=== PATIENT | male | born 1935 | race Caucasian/White ===

== ENCOUNTER 2023-03-14 07:33 | Outpatient (REF) | payer MEDICARE, SELFPAY ==
[2023-03-14 11:43] LABS: MANUAL DIFF FLAG NO
[2023-03-14 11:50] LABS: Basophils Absolute Auto 0.1 X10*3/uL (0.0-0.2); Basophils Percent Auto 0.8 % (0-2); Eosinophils Absolute Auto 0.2 X10*3/uL (0.0-0.4); Eosinophils Percent Auto 2.6 % (0-4); Hematocrit 42.5 % (42.0-52.0); Hemoglobin 13.5 g/dl (14.0-18.0); Imm Gran Abs Auto 0.02 X10*3/uL (0.00-0.03); Imm Gran Pct Auto 0.3 % (0.0-0.4); Lymphocytes Absolute Auto 1.9 X10*3/uL (1.2-4.9); Lymphocytes Percent Auto 30.7 % (20-40); Mean Corpuscular HGB Conc 31.8 g/dl (31.0-36.0); Mean Corpuscular Hemoglobin 31.5 pg (27.0-33.0); Mean Corpuscular Volume 99.3 fL (80.0-98.0); Mean Platelet Volume 11.6 fL (9.4-12.4); Monocytes Absolute Auto 0.6 X10*3/uL (0.1-1.2); Monocytes Percent Auto 9.7 % (2-11); Neutrophils Absolute Auto 3.4 x10*3/uL (2.0-8.3); Neutrophils Percent Auto 55.9 % (45-73); Platelet Count 147 X10*3/uL (160-400); Red Blood Count 4.28 X10*6/uL (4.60-5.80); Red Cell Distribution Width 14.2 % (11.0-16.0); White Blood Count 6.2 X10*3/uL (4.8-10.8)
[2023-03-14 12:23] LABS: Alanine Aminotransferase 32 U/L (0-40); Albumin Level 4.1 g/dL (3.5-5.0); Alkaline Phosphatase 62 U/L (39-117); Anion Gap 10 (12-20); Aspartate Amino Transferase 35 U/L (5-37); Bilirubin Total 0.9 mg/dL (0.0-1.0); Blood Urea Nitrogen 31 mg/dL (9-16); Carbon Dioxide 27 mmol/L (22-29); Chloride 109 mmol/L (96-108); Cholesterol 124 mg/dL (<200); Estimated Glomerular Filt Rate 37; Glucose Fasting 110 mg/dL (60-99); HDL Cholesterol 40 mg/dL (>40); LDL Cholesterol Calculated 67 mg/dL (<100); Potassium 4.1 mmol/L (3.3-5.1); Sodium 142 mmol/L (135-145); Triglycerides 88 mg/dL (<150)
[2023-03-14 12:27] LABS: Vitamin D 25-OH Total 74.8 ng/mL (>30)
== END 2023-03-14 07:34 | disposition home or self-care (01) ==
LOC: HO.HMGCLDS 07:33
PROVIDERS: PCP Internal Medicine Medical Oncology; Visit Provider Internal Medicine Medical Oncology
DX: I10 Essential (primary) hypertension (principal); E55.9 Vitamin D deficiency, unspecified; E78.2 Mixed hyperlipidemia
CPT/HCPCS: 36415; 80053; 80061; 82306; 85025

== ENCOUNTER 2023-05-21 09:07 | Outpatient (AMB) | payer MEDICARE, SELFPAY ==
[2023-05-21 09:11] VITALS: BP 120/76; PULSE 59; BMI 19.6
--- NOTE | 2023-05-21 09:11 | A.OFFVIS_ITS ---
Intake Vital Signs 05/21/23 09:11 Height 5 ft 6 in Weight 121 lb 4.068 oz BMI 19.6 BP 120/76 Blood Pressure Location Lt brachial Position Sitting Pulse 59 Intake Visit Reasons: 6 mth f/u per dc Intake Note: 6 month follow-up per Bindu feeling good Metal Bed Assembler Required: No Grinder Set Up Operator Jig: Grinder Set Up Operator Jig Present Accompanied by: Daughter Allergies No Known Allergies Allergy (Verified 11/13/22 14:46) Medication List - Last Reconciled 05/21/23 by Donnell Triana MD acetaminophen (Tylenol) 650 mg PO Q6H PRN amlodipine 5 mg PO DAILY atorvastatin 80 mg PO DAILY clopidogrel 75 mg PO DAILY metoprolol succinate ER 25 mg PO BID 90 days nitroglycerin 0.4 mg sublingual nitroglycerin 0.2 mg/hr 1 patch topical DAILY HPI HPI Comments History of Present Illness Details 87-year-old gentleman who presented to [facility] Emergency Department on 12/26/2021 with sharp sounding chest discomfort. He had V/Q scan performed which showed intermediate probability for PE and he had small to moderate size perfusion defects in the right lower lobe, right upper lobe and superior segment of the left lower lobe. He continued to have chest discomfort and EKG showed changes consistent with lateral ischemia. On discussion with him today he said he did not have sharp chest pain and in fact had central pressure which he was experiencing off and on for many weeks. He said he was getting this with exertion and also had 2 episodes where he woke up for sleep with chest pressure and significant sweating. He will get these symptoms with exertion and even while doing simple tasks like doing dishes. He said he will have to rest and the symptoms will go way. In any case because of ongoing chest discomfort he was transferred to [facility] for further assessment. He had acute kidney injury due to NSAID use and was conservatively managed initially. 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 He was being followed by [facility] and it appears that he has decided not to undergo any aggressive procedures and went home. He is now returning to see us. He is saying he is still gets chest discomfort but he has not exerted himself as much as he was doing before his admission to [facility]. He is still getting chest discomfort. He also has felt dizzy on some occasions. He is taking Eliquis and Plavix. He is also taking metoprolol. He also has a nitro patch given to him. He was seen in office and was getting chest discomfort and was started on amlodipine. He came back for follow-up and after reading the side effect list he decided not to take amlodipine. After discussion with him he decided to resume amlodipine. He is returning after 4 months. He continues to get chest discomfort with exertion. He has been using nitroglycerin 3 times a week. He is on nitroglycerin patch in addition to as-needed nitroglycerin, amlodipine 2.5 mg and Toprol-XL 12.5 mg daily. He is saying he walks at a slow pace and whenever gets symptoms he rests. On 1 occasion he had been at nighttime and to nitroglycerin. 05/21/2023: He returns for follow-up. Jazzmine mary has been doing great. With his day-to-day activities he has no symptoms. He has been experiencing some neck issues and left arm pain. He is saying that when he is moving his on sometime he gets neck pain and arm pain and takes nitroglycerin thinking that that this could be his heart. He is taking Plavix currently. Blood pressure control is good. Overall doing great. [facility] Medical History CKD (chronic kidney disease) Non-ST elevation [place] (NSTEMI) Pulmonary embolism Surgical History History of cholecystectomy History of hernia surgery Family History Father No problems noted. Mother No problems noted. Social History Alcohol intake: never Patient Tobacco Use Status: Never used Tobacco Review of Systems Const Denies chills, Denies fatigue, Denies fever(s), Denies frequent falls, Denies weakness, Denies weight gain and Denies weight loss ENT Denies dizziness Card Denies chest pain, Denies leg edema, Denies lightheadedness, Denies palpitations, Denies dyspnea, Denies dyspnea on exertion, Denies orthopnea and Denies other (loss of consciousness) Resp Denies cough, Denies dyspnea and Denies dyspnea on exertion GI Denies hematochezia and Denies change in stool character Musc Denies abnormal gait, Denies muscle weakness, Denies numbness, Denies radiating pain into limb and Denies tingling Neuro Denies abnormal gait, Denies dizziness, Denies frequent falls, Denies numbness, Denies tingling and Denies weakness Endo Denies fatigue and Denies palpitations Physical Exam Vital Signs: Last Vital Signs Pulse 59 05/21/23 09:11 BP 120/76 05/21/23 09:11 BMI result Body Mass Index 19.6 GENERAL APPEARANCE: in no acute distress, pleasant. NECK: no carotid bruit, no jugular venous distention. SKIN: no suspicious lesions, warm and dry. HEART: Systolic murmur aortic area, regular rate and rhythm. LUNGS: clear to auscultation bilaterally. ABDOMEN: soft, nontender. EXTREMITIES: no edema. PERIPHERAL PULSES: equal. 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 He has background history of stable angina. He is currently on Plavix. I think he can continue Plavix monotherapy. Would not add aspirin currently. Blood pressure control is good. Continue amlodipine and metoprolol. I have advised him to use nitroglycerin sublingual cautiously. He has some neck and arm issues and I have advised him not to use nitroglycerin if he gets pain in the arm as that is musculoskeletal. He understands. He will see us back in 6 months. Thank you for allowing me to participate in the care of your patient. Please feel free to contact me if you have any questions. Coding Level of Care Code Est Pt Level 3 (33191) Diagnoses Angina pectoris I20.9
== END 2023-05-21 09:37 | disposition home or self-care (01) ==
PROVIDERS: Visit Provider Internal Medicine Cardiovascular Disease
DX: I20.9 Angina pectoris, unspecified (principal)
CPT/HCPCS: 99213

== ENCOUNTER → 2023-05-21 09:07 | Outpatient (BNVA) | payer MEDICARE, SELFPAY | PROVIDERS: Visit Provider Internal Medicine Cardiovascular Disease | DX: I20.9 Angina pectoris, unspecified (principal); Z79.02 Long term (current) use of antithrombotics/antiplatelets; Z79.899 Other long term (current) drug therapy | CPT/HCPCS: 99212 ==

== ENCOUNTER 2023-09-11 07:45 | Outpatient (REF) | payer MEDICARE, SELFPAY ==
[2023-09-11 10:37] LABS: Basophils Percent Auto 0.5 % (0-2); Eosinophils Absolute Auto 0.1 X10*3/uL (0.0-0.4); Eosinophils Percent Auto 2.3 % (0-4); Hematocrit 40.5 % (42.0-52.0); Hemoglobin 13.4 g/dl (14.0-18.0); Imm Gran Abs Auto 0.02 X10*3/uL (0.00-0.03); Imm Gran Pct Auto 0.4 % (0.0-0.4); Lymphocytes Absolute Auto 1.5 X10*3/uL (1.2-4.9); Lymphocytes Percent Auto 27.6 % (20-40); MANUAL DIFF FLAG SCAN; Mean Corpuscular HGB Conc 33.1 g/dl (31.0-36.0); Mean Corpuscular Hemoglobin 32.4 pg (27.0-33.0); Mean Corpuscular Volume 98.1 fL (80.0-98.0); Monocytes Absolute Auto 0.6 X10*3/uL (0.1-1.2); Monocytes Percent Auto 10.6 % (2-11); Neutrophils Absolute Auto 3.3 x10*3/uL (2.0-8.3); Neutrophils Percent Auto 58.6 % (45-73); PLT CLUMP 1; Red Blood Count 4.13 X10*6/uL (4.60-5.80); Red Cell Distribution Width 13.8 % (11.0-16.0); SCAN SMEAR FLAG 1
[2023-09-11 10:39] LABS: White Blood Count 5.6 X10*3/uL (4.8-10.8)
[2023-09-11 11:23] LABS: Alanine Aminotransferase 24 U/L (0-40); Albumin Level 4.1 g/dL (3.5-5.0); Alkaline Phosphatase 65 U/L (39-117); Anion Gap 10 (12-20); Aspartate Amino Transferase 29 U/L (5-37); Bilirubin Total 0.8 mg/dL (0.0-1.0); Blood Urea Nitrogen 29 mg/dL (9-16); Calcium 9.5 mg/dL (8.4-10.2); Carbon Dioxide 27 mmol/L (22-29); Chloride 108 mmol/L (96-108); Cholesterol 120 mg/dL (<200); Estimated Glomerular Filt Rate 41; Glucose Fasting 105 mg/dL (60-99); HDL Cholesterol 44 mg/dL (>40); LDL Cholesterol Calculated 60 mg/dL (<100); Potassium 4.1 mmol/L (3.3-5.1); Sodium 141 mmol/L (135-145); Triglycerides 83 mg/dL (<150)
[2023-09-11 11:32] LABS: Platelet Count 140 X10*3/uL (160-400)
[2023-09-11 11:33] LABS: SLIDE REVIEW VERIFIED
== END 2023-09-11 07:46 | disposition home or self-care (01) ==
LOC: HO.HMGCLDS 07:45
PROVIDERS: PCP Internal Medicine Medical Oncology; Visit Provider Internal Medicine Medical Oncology
DX: E78.2 Mixed hyperlipidemia (principal); E59 Dietary selenium deficiency
CPT/HCPCS: 36415; 80053; 80061; 82306; 85025

== ENCOUNTER 2023-10-01 08:15 | Outpatient (REF) | payer MEDICARE, SELFPAY ==
[2023-10-01 10:57] LABS: MANUAL DIFF FLAG NO
[2023-10-01 11:31] LABS: Basophils Absolute Auto 0.1 X10*3/uL (0.0-0.2); Basophils Percent Auto 0.8 % (0-2); Eosinophils Absolute Auto 0.2 X10*3/uL (0.0-0.4); Eosinophils Percent Auto 2.5 % (0-4); Hematocrit 42.9 % (42.0-52.0); Hemoglobin 14.1 g/dl (14.0-18.0); Imm Gran Abs Auto 0.03 X10*3/uL (0.00-0.03); Imm Gran Pct Auto 0.5 % (0.0-0.4); Lymphocytes Absolute Auto 1.6 X10*3/uL (1.2-4.9); Lymphocytes Percent Auto 26.5 % (20-40); Mean Corpuscular HGB Conc 32.9 g/dl (31.0-36.0); Mean Corpuscular Hemoglobin 32.8 pg (27.0-33.0); Mean Corpuscular Volume 99.8 fL (80.0-98.0); Monocytes Absolute Auto 0.7 X10*3/uL (0.1-1.2); Monocytes Percent Auto 11.3 % (2-11); Neutrophils Absolute Auto 3.6 x10*3/uL (2.0-8.3); Neutrophils Percent Auto 58.4 % (45-73); Platelet Count 135 X10*3/uL (160-400); Red Cell Distribution Width 13.8 % (11.0-16.0); White Blood Count 6.1 X10*3/uL (4.8-10.8)
[2023-10-01 11:42] LABS: Albumin Level 4.2 g/dL (3.5-5.0); Anion Gap 13 (12-20); Blood Urea Nitrogen 30 mg/dL (9-16); Calcium 9.5 mg/dL (8.4-10.2); Carbon Dioxide 26 mmol/L (22-29); Chloride 107 mmol/L (96-108); Estimated Glomerular Filt Rate 40; Magnesium 2.1 mg/dL (1.6-2.6); Phosphorus 3.4 mg/dL (2.7-4.5); Potassium 4.3 mmol/L (3.3-5.1); Sodium 142 mmol/L (135-145)
[2023-10-01 11:47] LABS: Parathyroid Hormone Intact 58.9 pg/mL (8.7-77.1)
[2023-10-01 12:03] LABS: Vitamin D 25-OH Total 71.1 ng/mL (>30)
== END 2023-10-01 08:16 | disposition home or self-care (01) ==
LOC: HO.HMGCLDS 08:15
PROVIDERS: PCP Internal Medicine Medical Oncology; Visit Provider Internal Medicine Nephrology
DX: I12.9 Hypertensive chronic kidney disease with stage 1 through stage 4 chronic kidney disease, or unspecified chronic kidney disease (principal); N18.32 Chronic kidney disease, stage 3b; N25.0 Renal osteodystrophy
CPT/HCPCS: 36415; 80051; 82040; 82306; 82310; 82565; 83735; 83970; 84100; 84520; 85025

== ENCOUNTER 2023-11-26 08:32 | Outpatient (AMB) | payer MEDICARE, SELFPAY ==
[2023-11-26 09:01] VITALS: BP 120/64; PULSE 54; BMI 19.5
--- NOTE | 2023-11-26 09:01 | A.OFFVIS_ITS ---
Vital Signs 11/26/23 09:01 Height 5 ft 6 in Weight 120 lb 13.013 oz BMI 19.5 BP 120/64 Blood Pressure Location Rt brachial Position Sitting Pulse 54 Intake Visit Reasons: 6 mth f.up Medical Equipment Technician Required: No Accompanied by: Self / Same As Patient Allergies No Known Allergies Allergy (Verified 09/05/23 14:38) HPI Comments Details: 88-year-old gentleman who presented to [facility] on 12/26/2021 with sharp sounding chest discomfort. He had V/Q scan performed which showed intermediate probability for PE and he had small to moderate size perfusion defects in the right lower lobe, right upper lobe and superior segment of the left lower lobe. He continued to have chest discomfort and EKG showed changes consistent with lateral ischemia. On discussion with him today he said he did not have sharp chest pain and in fact had central pressure which he was experiencing off and on for many weeks. He said he was getting this with exertion and also had 2 episodes where he woke up for sleep with chest pressure and significant sweating. He will get these symptoms with exertion and even while doing simple tasks like doing dishes. He said he will have to rest and the symptoms will go way. In any case because of ongoing chest discomfort he was transferred to [facility] for further assessment. He had acute kidney injury due to NSAID use and was conservatively managed initially. 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 He was being followed by [facility] and it appears that he has decided not to undergo any aggressive procedures and went home. He is now returning to see us. He is saying he is still gets chest discomfort but he has not exerted himself as much as he was doing before his admission to [facility]. He is still getting chest discomfort. He also has felt dizzy on some occasions. He is taking Eliquis and Plavix. He is also taking metoprolol. He also has a nitro patch given to him. He was seen in office and was getting chest discomfort and was started on amlodipine. He came back for follow-up and after reading the side effect list he decided not to take amlodipine. After discussion with him he decided to resume amlodipine. He is returning after 4 months. He continues to get chest discomfort with exertion. He has been using nitroglycerin 3 times a week. He is on nitroglycerin patch in addition to as-needed nitroglycerin, amlodipine 2.5 mg and Toprol-XL 12.5 mg daily. He is saying he walks at a slow pace and whenever gets symptoms he rests. On 1 occasion he had been at nighttime and to nitroglycerin. 05/21/2023: He returns for follow-up. He has been doing great. With his da y-to-day activities he has no symptoms. He has been experiencing some neck issues and left arm pain. He is saying that when he is moving his on sometime he gets neck pain and arm pain and takes nitroglycerin thinking that that this could be his heart. He is taking Plavix currently. Blood pressure control is good. Overall doing great. 11/26/2023: He returns for follow-up. He has been doing well. No chest discomfort. 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 He was previously advised not to use nitroglycerin for left arm pain and he has been following this instruction. Blood pressure is stable. No other concerning symptoms on follow-up. [facility] Medical History CKD (chronic kidney disease) Non-ST elevation [place] (NSTEMI) Pulmonary embolism Surgical History History of cholecystectomy History of hernia surgery Family History Father No problems noted. Mother No problems noted. Social History Alcohol intake: never Patient Tobacco Use Status: Never used Tobacco Review of Systems Const Denies chills, Denies fatigue, Denies fever(s), Denies frequent falls, Denies weakness, Denies weight gain and Denies weight loss ENT Denies dizziness Card Denies chest pain, Denies leg edema, Denies lightheadedness, Denies palpitations, Denies dyspnea and Denies dyspnea on exertion Resp Denies cough, Denies dyspnea and Denies dyspnea on exertion GI Denies hematochezia Musc Denies abnormal gait, Denies muscle weakness, Denies numbness, Denies radiating pain into limb and Denies tingling Neuro Denies abnormal gait, Denies dizziness, Denies frequent falls, Denies numbness, Denies tingling and Denies weakness Endo Denies fatigue and Denies palpitations Physical Exam Vital Signs: Last Vital Signs Pulse 54 11/26/23 09:01 BP 120/64 11/26/23 09:01 BMI result Body Mass Index 19.5 GENERAL APPEARANCE: in no acute distress, pleasant. NECK: no carotid bruit, no jugular venous distention. SKIN: no suspicious lesions, warm and dry. HEART: Systolic murmur aortic area, regular rate and rhythm. LUNGS: clear to auscultation bilaterally. ABDOMEN: soft, nontender. EXTREMITIES: no edema. PERIPHERAL PULSES: equal. NEUROLOGIC: No gross deficits, AAO X 3 Office Procedures EKG Details: Sinus bradycardia 54 beats per minute first-degree AV block, normal axis, inferior T-wave inversions, poor R-wave progression-can not rule out anterior infarct, QTC 428 milliseconds. [id number], Complete Assessment & Plan Assessment & Plan (1) Stable angina: Code(s): I20.89 - Other forms of angina pectoris Category: Medical (2) Angina pectoris: Code(s): I20.9 - Angina pectoris, unspecified Category: Medical Plan 88-year-old gentleman who is here for follow-up. He has background history of stable angina. He is currently on Plavix. I think he can continue Plavix monotherapy. Blood pressure control is good. Continue amlodipine and metoprolol. I have advised him to use nitroglycerin sublingual cautiously. He has some neck and arm issues and I have advised him not to use nitroglycerin if he gets pain in the arm as that is musculoskeletal. He understands. Doing well and is clinically stable. He will see us back in 6 months. Thank you for allowing me to participate in the care of your patient. Please feel free to contact me if you have any questions. Coding Level of Care Code Est Pt Level 4 (64782) Diagnoses Stable angina I20.89 Angina pectoris I20.9 CPT Codes EKG - CPT: 75510-[id number], Complete ([id number])
== END 2023-11-26 09:45 | disposition home or self-care (01) ==
PROVIDERS: PCP Internal Medicine Medical Oncology; Visit Provider Internal Medicine Cardiovascular Disease
DX: I20.89 Other forms of angina pectoris (principal); I20.9 Angina pectoris, unspecified
CPT/HCPCS: 93010; 99214

== ENCOUNTER → 2023-11-26 08:32 | Outpatient (BNVA) | payer MEDICARE, SELFPAY | PROVIDERS: PCP Internal Medicine Medical Oncology; Visit Provider Internal Medicine Cardiovascular Disease | DX: I20.89 Other forms of angina pectoris (principal) | CPT/HCPCS: 93005; 99212 ==

== ENCOUNTER 2024-01-15 07:23 | Outpatient (REF) | payer MEDICARE, SELFPAY ==
[2024-01-15 10:46] LABS: MANUAL DIFF FLAG NO
[2024-01-15 11:23] LABS: Basophils Absolute Auto 0.1 X10*3/uL (0.0-0.2); Basophils Percent Auto 0.8 % (0-2); Eosinophils Absolute Auto 0.2 X10*3/uL (0.0-0.4); Eosinophils Percent Auto 2.8 % (0-4); Hemoglobin 14.1 g/dl (14.0-18.0); Imm Gran Abs Auto 0.02 X10*3/uL (0.00-0.03); Imm Gran Pct Auto 0.3 % (0.0-0.4); Lymphocytes Absolute Auto 1.6 X10*3/uL (1.2-4.9); Lymphocytes Percent Auto 26.1 % (20-40); Mean Corpuscular HGB Conc 32.8 g/dl (31.0-36.0); Mean Corpuscular Hemoglobin 32.7 pg (27.0-33.0); Mean Corpuscular Volume 99.8 fL (80.0-98.0); Mean Platelet Volume 11.4 fL (9.4-12.4); Monocytes Absolute Auto 0.6 X10*3/uL (0.1-1.2); Monocytes Percent Auto 9.1 % (2-11); Neutrophils Absolute Auto 3.8 x10*3/uL (2.0-8.3); Neutrophils Percent Auto 60.9 % (45-73); Platelet Count 124 X10*3/uL (160-400); Red Blood Count 4.31 X10*6/uL (4.60-5.80); Red Cell Distribution Width 13.9 % (11.0-16.0); White Blood Count 6.2 X10*3/uL (4.8-10.8)
[2024-01-15 11:53] LABS: Alanine Aminotransferase 54 U/L (0-40); Albumin Level 4.2 g/dL (3.5-5.0); Alkaline Phosphatase 81 U/L (39-117); Anion Gap 13 (12-20); Aspartate Amino Transferase 48 U/L (5-37); Bilirubin Total 0.9 mg/dL (0.0-1.0); Blood Urea Nitrogen 30 mg/dL (9-16); Calcium 9.6 mg/dL (8.4-10.2); Carbon Dioxide 27 mmol/L (22-29); Chloride 105 mmol/L (96-108); Cholesterol 130 mg/dL (<200); Estimated Glomerular Filt Rate 42; Glucose Fasting 107 mg/dL (60-99); HDL Cholesterol 47 mg/dL (>40); LDL Cholesterol Calculated 67 mg/dL (<100); Potassium 4.5 mmol/L (3.3-5.1); Sodium 140 mmol/L (135-145); Total Protein 7.4 g/dL (6.5-8.0); Triglycerides 82 mg/dL (<150)
== END 2024-01-15 07:24 | disposition home or self-care (01) ==
LOC: HO.HMGCLDS 07:23
PROVIDERS: PCP Internal Medicine Medical Oncology; Visit Provider Internal Medicine Medical Oncology
DX: E78.2 Mixed hyperlipidemia (principal); I10 Essential (primary) hypertension
CPT/HCPCS: 36415; 80053; 80061; 85025

== ENCOUNTER 2024-03-18 07:55 | Outpatient (REF) | payer MEDICARE, SELFPAY ==
[2024-03-18 10:07] LABS: MANUAL DIFF FLAG NO
[2024-03-18 10:16] LABS: Basophils Absolute Auto 0.1 X10*3/uL (0.0-0.2); Basophils Percent Auto 0.8 % (0-2); Eosinophils Absolute Auto 0.2 X10*3/uL (0.0-0.4); Eosinophils Percent Auto 2.5 % (0-4); Hematocrit 42.9 % (42.0-52.0); Hemoglobin 13.6 g/dl (14.0-18.0); Imm Gran Abs Auto 0.03 X10*3/uL (0.00-0.03); Imm Gran Pct Auto 0.5 % (0.0-0.4); Lymphocytes Absolute Auto 1.7 X10*3/uL (1.2-4.9); Lymphocytes Percent Auto 26.6 % (20-40); Mean Corpuscular HGB Conc 31.7 g/dl (31.0-36.0); Mean Corpuscular Hemoglobin 31.8 pg (27.0-33.0); Mean Corpuscular Volume 100.2 fL (80.0-98.0); Mean Platelet Volume 11.9 fL (9.4-12.4); Monocytes Absolute Auto 0.7 X10*3/uL (0.1-1.2); Monocytes Percent Auto 10.5 % (2-11); Neutrophils Absolute Auto 3.8 x10*3/uL (2.0-8.3); Neutrophils Percent Auto 59.1 % (45-73); Platelet Count 132 X10*3/uL (160-400); Red Blood Count 4.28 X10*6/uL (4.60-5.80); Red Cell Distribution Width 13.6 % (11.0-16.0); White Blood Count 6.4 X10*3/uL (4.8-10.8)
[2024-03-18 10:45] LABS: Prostate Specific Antigen 2.12 ng/mL (<0.05-4.0)
[2024-03-18 10:51] LABS: Alanine Aminotransferase 62 U/L (0-40); Albumin Level 4.3 g/dL (3.5-5.0); Alkaline Phosphatase 83 U/L (39-117); Anion Gap 13 (12-20); Aspartate Amino Transferase 53 U/L (5-37); Bilirubin Total 0.9 mg/dL (0.0-1.0); Blood Urea Nitrogen 37 mg/dL (9-16); Calcium 9.8 mg/dL (8.4-10.2); Carbon Dioxide 26 mmol/L (22-29); Chloride 105 mmol/L (96-108); Cholesterol 132 mg/dL (<200); Estimated Glomerular Filt Rate 36; Glucose Fasting 110 mg/dL (60-99); HDL Cholesterol 43 mg/dL (>40); LDL Cholesterol Calculated 69 mg/dL (<100); Potassium 4.4 mmol/L (3.3-5.1); Sodium 140 mmol/L (135-145); Total Protein 7.7 g/dL (6.5-8.0); Triglycerides 104 mg/dL (<150)
== END 2024-03-18 07:56 | disposition home or self-care (01) ==
LOC: HO.HMGCLDS 07:55
PROVIDERS: PCP Internal Medicine Medical Oncology; Visit Provider Internal Medicine Medical Oncology
DX: I26.94 Multiple subsegmental thrombotic pulmonary emboli without acute cor pulmonale (principal); E78.2 Mixed hyperlipidemia; N40.1 Benign prostatic hyperplasia with lower urinary tract symptoms; Z12.5 Encounter for screening for malignant neoplasm of prostate
CPT/HCPCS: 36415; 80053; 80061; 84153; 85025

== ENCOUNTER 2024-04-07 09:56 | Outpatient (AMB) | payer MEDICARE, SELFPAY ==
[2024-04-07 10:19] VITALS: BP 120/62; PULSE 69; BMI 19.4
--- NOTE | 2024-04-07 10:19 | A.OFFVIS_ITS ---
Vital Signs 04/07/24 10:19 Height 5 ft 6 in Weight 120 lb 5.958 oz BMI 19.4 BP 120/62 Blood Pressure Location Rt brachial Position Sitting Pulse 69 Pulse Source Pulse Oximeter Intake Visit Reasons: Dr Clyde araujo appt Mental Health Practitioner Required: No Accompanied by: Self / Same As Patient Allergies No Known Allergies Allergy (Verified 09/05/23 14:38) Medication List - Last Reconciled 04/07/24 by Donnell Triana MD acetaminophen (Tylenol) 650 mg PO Q6H PRN amlodipine 5 mg PO DAILY atorvastatin 80 mg PO DAILY clopidogrel 75 mg PO DAILY metoprolol succinate ER 25 mg PO BID 90 days nitroglycerin 0.4 mg sublingual nitroglycerin 0.2 mg/hr 1 patch topical DAILY HPI Comments Details: 88-year-old gentleman who presented to [facility] on 12/26/2021 with sharp sounding chest discomfort. He had V/Q scan performed which showed intermediate probability for PE and he had small to moderate size perfusion defects in the right lower lobe, right upper lobe and superior segment of the left lower lobe. He continued to have chest discomfort and EKG showed changes consistent with lateral ischemia. On discussion with him today he said he did not have sharp chest pain and in fact had central pressure which he was experiencing off and on for many weeks. He said he was getting this with exertion and also had 2 episodes where he woke up for sleep with chest pressure and significant sweating. He will get these symptoms with exertion and even while doing simple tasks like doing dishes. He said he will have to rest and the symptoms will go way. In any case because of ongoing chest discomfort he was transferred to [facility] for further assessment. He had acute kidney injury due to NSAID use and was conservatively managed initially. 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 He was being followed by [facility] and it appears that he has decided not to undergo any aggressive procedures and went home. He is now returning to see us. He is saying he is still gets chest discomfort but he has not exerted himself as much as he was doing before his admission to [facility]. He is still getting chest discomfort. He also has felt dizzy on some occasions. He is taking Eliquis and Plavix. He is also taking metoprolol. He also has a nitro patch given to him. He was seen in office and was getting chest discomfort and was started on amlodipine. He came back for follow-up and after reading the side effect list he decided not to take amlodipine. After discussion with him he decided to resume amlodipine. He is returning after 4 months. He continues to get chest discomfort with exertion. He has been using nitroglycerin 3 times a week. He is on nitroglycerin patch in addition to as-needed nitroglycerin, amlodipine 2.5 mg and Toprol-XL 12.5 mg daily. He is saying he walks at a slow pace and whenever gets symptoms he rests. On 1 occasion he had been at nighttime and to nitroglycerin. 05/21/2023: He returns for follow-up. He has been doing great. With his day-to-day activities he has no symptoms. He has been experiencing some neck issues and left arm pain. He is saying that when he is moving his on sometime he gets neck pain and arm pain and takes nitroglycerin thinking that that this could be his heart. He is taking Plavix currently. Blood pressure control is good. Overall doing great. 11/26/2023: He returns for follow-up. He has been doing well. No chest discomfort. 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 He was previously advised not to use nitroglycerin for left arm pain and he has been following this instruction. Blood pressure is stable. No other concerning symptoms on follow-up. 04/07/2024: He is here for follow-up. On 03/20/2024 he had severe neck pain and left arm tingling and pain. He said he had diaphoresis with this. He said he waited and then took nitroglycerin and after 5 seconds of taking nitroglycerin the pain went away. Subsequently had another episode in mid March where he took nitroglycerin. He is saying he has persistent neck pain which is present all the time. This pain is present currently 2. There is tenderness over the left side of the neck and he is saying that he has the same pain as he had on March 20 but intensity is not as severe. [facility] Medical History CKD (chronic kidney disease) Non-ST elevation [place] (NSTEMI) Pulmonary embolism Surgical History History of cholecystectomy History of hernia surgery Family History Father No problems noted. Mother No problems noted. Social History Alcohol intake: never Patient Tobacco Use Status: Never used Tobacco Review of Systems Const Denies chills, Denies fatigue, Denies fever(s), Denies frequent falls, Denies weakness, Denies weight gain and Denies weight loss ENT Denies dizziness Card Denies chest pain, Denies leg edema, Denies lightheadedness, Denies palpitations, Denies dyspnea and Denies dyspnea on exertion Resp Denies cough, Denies dyspnea and Denies dyspnea on exertion GI Denies hematochezia Musc Denies abnormal gait, Denies muscle weakness, Denies numbness, Denies radiating pain into limb and Denies tingling Neuro Denies abnormal gait, Denies dizziness, Denies frequent falls, Denies numbness, Denies tingling and Denies weakness Endo Denies fatigue and Denies palpitations Physical Exam Vital Signs: Last Vital Signs Pulse 69 04/07/24 10:19 BP 120/62 04/07/24 10:19 BMI result Body Mass Index 19.4 GENERAL APPEARANCE: in no acute distress, pleasant. NECK: no carotid bruit, no jugular venous distention. Tenderness over the left side of lower cervical spine. SKIN: no suspicious lesions, warm and dry. HEART: Systolic murmur aortic area, regular rate and rhythm. LUNGS: clear to auscultation bilaterally. ABDOMEN: soft, nontender. EXTREMITIES: no edema. PERIPHERAL PULSES: equal. NEUROLOGIC: No gross deficits, AAO X 3 Assessment & Plan Assessment & Plan (1) Stable angina: Code(s): I20.89 - Other forms of angina pectoris Category: Medical Plan 88-year-old gentleman who is here for follow-up. He has background history of stable angina. He is currently on Plavix monotherapy. Blood pressure control is good. Continue amlodipine, nitroglycerin patch and metoprolol. He has been experiencing neck and arm pain. This pain is present all the time and is unlikely to be ischemic in origin. Please do workup for his cervical spine to look for any nerve compression because arm pain is likely due to radiculopathy. I have explained this to the patient and his daughter in detail. We will continue same medications for now. Thank you for allowing me to participate in the care of your patient. Please feel free to contact me if you have any questions. Coding Level of Care Code Est Pt Level 4 (27199) Diagnoses Stable angina I20.89
== END 2024-04-07 10:56 | disposition home or self-care (01) ==
PROVIDERS: PCP Internal Medicine Medical Oncology; Visit Provider Internal Medicine Cardiovascular Disease
DX: I20.89 Other forms of angina pectoris (principal)
CPT/HCPCS: 99214

== ENCOUNTER → 2024-04-07 09:56 | Outpatient (BNVA) | payer MEDICARE, SELFPAY | PROVIDERS: PCP Internal Medicine Medical Oncology; Visit Provider Internal Medicine Cardiovascular Disease | DX: I20.89 Other forms of angina pectoris (principal); Z79.899 Other long term (current) drug therapy | CPT/HCPCS: 99212 ==

== ENCOUNTER 2024-05-21 09:21 | Outpatient (AMB) | payer MEDICARE, SELFPAY ==
[2024-05-21 09:52] VITALS: BP 128/62; PULSE 68; BMI 19.2
--- NOTE | 2024-05-21 09:52 | MHC.OFFVIS ---
Vital Signs 05/21/24 09:52 Height 5 ft 6 in Weight 119 lb 0.794 oz BMI 19.2 BP 128/62 Blood Pressure Location Rt brachial Position Sitting Pulse 68 Pulse Source Pulse Oximeter Intake Visit Reasons: 6m follow up Allergies No Known Allergies Allergy (Verified 09/05/23 14:38) HPI Comments Details: 88-year-old gentleman who presented to [facility] on 12/26/2021 with sharp sounding chest discomfort. He had V/Q scan performed which showed intermediate probability for PE and he had small to moderate size perfusion defects in the right lower lobe, right upper lobe and superior segment of the left lower lobe. He continued to have chest discomfort and EKG showed changes consistent with lateral ischemia. On discussion with him today he said he did not have sharp chest pain and in fact had central pressure which he was experiencing off and on for many weeks. He said he was getting this with exertion and also had 2 episodes where he woke up for sleep with chest pressure and significant sweating. He will get these symptoms with exertion and even while doing simple tasks like doing dishes. He said he will have to rest and the symptoms will go way. In any case because of ongoing chest discomfort he was transferred to [facility] for further assessment. He had acute kidney injury due to NSAID use and was conservatively managed initially. 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 He was being followed by [facility] and it appears that he has decided not to undergo any aggressive procedures and went home. He is now returning to see us. He is saying he is still gets chest discomfort but he has not exerted himself as much as he was doing before his admission to [facility]. He is still getting chest discomfort. He also has felt dizzy on some occasions. He is taking Eliquis and Plavix. He is also taking metoprolol. He also has a nitro patch given to him. He was seen in office and was getting chest discomfort and was started on amlodipine. He came back for follow-up and after reading the side effect list he decided not to take amlodipine. After discussion with him he decided to resume amlodipine. He is returning after 4 months. He continues to get chest discomfort with exertion. He has been using nitroglycerin 3 times a week. He is on nitroglycerin patch in addition to as-needed nitroglycerin, amlodipine 2.5 mg and Toprol-XL 12.5 mg daily. He is saying he walks at a slow pace and whenever gets symptoms he rests. On 1 occasion he had been at nighttime and to nitroglycerin. 05/21/2023: He returns for follow-up. He has been doing great. With his day-to-day activities he has no symptoms. He has been experiencing some neck issues and left arm pain. He is saying that when he is moving his on sometime he gets neck pain and arm pain and takes nitroglycerin thinking that that this could be his heart. He is taking Plavix currently. Blood pressure control is good. Overall doing great. 11/26/2023: He returns for follow-up. He has been doing well. No chest discomfort. 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 He was previously advised not to use nitroglycerin for left arm pain and he has been following this instruction. Blood pressure is stable. No other concerning symptoms on follow-up. 04/07/2024: He is here for follow-up. On 03/20/2024 he had severe neck pain and left arm tingling and pain. He said he had diaphoresis with this. He said he waited and then took nitroglycerin and after 5 seconds of taking nitroglycerin the pain went away. Subsequently had another episode in mid March where he took nitroglycerin. He is saying he has persistent neck pain which is present all the time. This pain is present currently 2. There is tenderness over the left side of the neck and he is saying that he has the same pain as he had on March 20 but intensity is not as severe. 05/21/2024: He is here for follow-up. He said he started using 2 pillows at night and is neck pain has improved completely. He has been doing grocery shopping where he gets fatigued after doing activities and has to stop but does not get any chest discomfort. Blood pressure is well controlled. [facility] Medical History CKD (chronic kidney disease) Non-ST elevation CO (NSTEMI) Pulmonary embolism Surgical History History of cholecystectomy History of hernia surgery Family History Father No problems noted. Mother No problems noted. Social History Alcohol intake: never Patient Tobacco Use Status: Never used Tobacco Review of Systems Const Denies weakness ENT Denies dizziness Card Denies chest pain, Denies chest pain with activity, Denies syncope, Denies rapid heart rate, Denies pedal edema, Denies edema, Denies leg edema, Denies lightheadedness, Denies palpitations, Denies dyspnea, Denies dyspnea on exertion and Denies orthopnea Resp Denies cough, Denies dyspnea and Denies dyspnea on exertion GI Denies hematochezia and Denies change in stool character Musc Denies abnormal gait, Denies muscle cramps, Denies muscle weakness, Denies numbness, Denies radiating pain into limb and Denies tingling Neuro Denies abnormal gait, Denies dizziness, Denies syncope, Denies numbness, Denies tingling and Denies weakness Endo Denies palpitations Physical Exam Vital Signs: Last Vital Signs Pulse 68 05/21/24 09:52 BP 128/62 05/21/24 09:52 BMI result Body Mass Index 19.2 GENERAL APPEARANCE: in no acute distress, pleasant. NECK: no carotid bruit, no jugular venous distention. SKIN: no suspicious lesions, warm and dry. HEART: Systolic murmur aortic area, regular rate and rhythm. LUNGS: clear to auscultation bilaterally. ABDOMEN: soft, nontender. EXTREMITIES: no edema. PERIPHERAL PULSES: equal. NEUROLOGIC: No gross deficits, AAO X 3 Assessment & Plan Assessment & Plan (1) Stable angina: Code(s): I20.89 - Other forms of angina pectoris Category: Medical Plan 88-year-old gentleman who is here for follow-up. He has background history of stable angina. He is currently on Plavix monotherapy. Blood pressure control is good. Continue amlodipine, nitroglycerin patch and metoprolol. His neck pain has improved after using 2 pillows at night. Clearly a musculoskeletal issue. He is feeling well and does not get any anginal symptoms with activities. Fatigue is due to deconditioning and I have advised him to increase his activity as much as he can tolerate. Thank you for allowing me to participate in the care of your patient. Please feel free to contact me if you have any questions. Coding Level of Care Code Est Pt Level 4 (06995) Diagnoses Stable angina I20.89
== END 2024-05-21 10:24 | disposition home or self-care (01) ==
LOC: HO.HCS 09:21
PROVIDERS: PCP Internal Medicine Medical Oncology; Visit Provider Internal Medicine Cardiovascular Disease
DX: I20.89 Other forms of angina pectoris (principal)
CPT/HCPCS: 99214

== ENCOUNTER → 2024-05-21 09:21 | Outpatient (BNVA) | payer MEDICARE, SELFPAY | PROVIDERS: PCP Internal Medicine Medical Oncology; Visit Provider Internal Medicine Cardiovascular Disease | DX: I20.89 Other forms of angina pectoris (principal); R53.83 Other fatigue; Z79.02 Long term (current) use of antithrombotics/antiplatelets | CPT/HCPCS: 99212 ==